=== PATIENT | male | born 1935 | race Caucasian/White ===

== ENCOUNTER 2020-06-29 09:50 | Inpatient (IN) | payer MEDICARE, SELFPAY ==
[2020-06-29] VITALS (9 sets, daily range): BP systolic 102–121; BP diastolic 46–65; PULSE 51–65; RESP 16–21; TEMP 36.2–36.7; O2SAT 95–100; BMI 23.8; BMI 23.9
--- NOTE | ~2020-06-29 | CT_ITS ---
EXAMINATION: CT abdomen pelvis wo con DATE: 06/29/2020 11:21 INDICATION: Hematuria. Flank pain. TECHNIQUE: Computed tomography (CT) of the abdomen and pelvis was performed without intravenous contr ast. Automated exposure control and iterative reconstruction technique were employed. The dose-length product was 351.81 mGy-cm. COMPARISON: None FINDINGS: Regions of tree-in-bud opacity with tiny centrilobular nodules at the dependent aspect of the bilater al lower lobes and in the lingula where there are couple larger 5 mm and 7 mm nodules. Calcified left lower lobe nodule along with multiple hepatic and splenic calcific calcification is consistent with old granulomatous disease. Heart size is normal. Atherosclerotic coronary artery calcification with c hange of prior median sternotomy, coronary artery bypass grafting and stenting. Three lead pacemaker/ AICD seen with the tips at the right atrial appendage, apex of the right ventricle and in a coronary vein along the lateral wall of the left ventricle having traversed the coronary sinus. No pericardial or pleural effusion. Small sliding-type hiatal hernia. Multiple hepatic cysts, the largest measuring 7 mm in the right hep atic lobe. Gallbladder, pancreas and bilateral adrenal glands are normal. 1.3 cm soft tissue density nodule between the upper pole of the left kidney and the caudal tip of the spleen, unclear whether th is represents a renal lesion either proteinaceous/hemorrhagic cyst or solid neoplasm or a small splen ule. Favor the latter. Bilateral kidneys and ureters are otherwise unremarkable with no urolithiasis or hydronephrosis. Swirled appearance of intermediate attenuation likely clot within the bladder whic h is of indeterminate etiology. No definitive bladder lesions identified however evaluation is limite d by the intraluminal clot. Prostatomegaly. There is mild colonic diverticulosis with a sigmoid predo minance. There is no adjacent inflammatory change to suggest diverticulitis. The appendix is not vis ualized. No pericecal inflammatory change to suggest acute appendicitis. Small bowel is unremarkable with no obstruction. Small fat-containing left inguinal hernia. No free intraperitoneal gas or fluid. No pathologically enlarged abdominal or pelvic lymphadenopathy. There is calcified atherosclerosis o f the aorta and many of the other arteries. Moderate lumbar spondylosis with 1-2 mm retrolisthesis L1 on L2 and 3 mm anterolisthesis L4 on L5. IMPRESSION: 1. Intermediate attenuation filling defect within the bladder with appearance most suspicious for padmini t which is of indeterminate etiology with no evident urolithiasis. Correlate with urinalysis. 2. 1.3 cm lesion along side but not definitively arising from the upper pole of the right kidney or t he adjacent spleen and would favor splenule over an exophytic renal lesion with differential for the latter including proteinaceous/hemorrhagic cyst or solid neoplasm. Consider further evaluation with p re and postcontrast MRI. 3. Mild tree-in-bud opacities in the bilateral lower lobes and lingula consistent with bronchiolitis/ pneumonia either acute or chronic. 4. 5 mm and 7 mm nodule at the lingula. Recommend follow-up low-dose noncontrast chest CT at 3-6 nahomi hs. 5. Small sliding-type hiatal hernia. 6. Prostatomegaly. 7. Small fat-containing left inguinal hernia. Reviewed, dictated and finalized at location A. GENCY DEPARTMENT DIRECTOR IMPRESSION: 1. Intermediate attenuation filling defect within the bladder with appearance m ost suspicious for clot which is of indeterminate etiology with no evident urol ithiasis. Correlate with urinalysis. 2. 1.3 cm lesion along side but not definitively arising from the upper pole of the right kidney or the adjacent spleen and would favor splenule ove
--- NOTE | ~2020-06-29 | XR_ITS ---
MODIFIED ESOPHAGRAM HISTORY: Dysphagia. TECHNIQUE: Modified barium esophagram was performed on 06/30/2020. I administered fluoroscopy and per formed the exam with speech pathologist. Patient was seated for lateral fluoroscopic imaging for ing estion of thin liquids, pudding, solids and quantified amounts, followed by thin liquids in uncontrol led amounts. This was recorded on tape. A single fluoroscopic spot image was also recorded. The DAP f or this procedure was 3.0 Gycm2. The amount of fluoroscopy time used during this procedure was 4.5 mi nutes. FINDINGS: Oral stage: Adequate function. Pharyngeal stage: There is reduced laryngeal elevation and tongue base retraction vallecular residue and residue in the piriform sinuses. There is laryngeal penetration and aspiration with thin liquids. Cervical/esophageal stage: Adequate function. IMPRESSION: Pharyngeal dysphagia with laryngeal penetration and aspiration with thin liquids. Please correlate with speech pathologist findings and specific feeding recommendations. Reviewed, dictated and finalized at location A. BOTOMY INSTRUCTOR
[2020-06-29 10:20] LABS: Basophils Absolute Auto 0.1 K/mm3 (0.0-0.1); Basophils Percent Auto 0.8 % (0.2-1.2); Eosinophils Absolute Auto 0.3 K/mm3 (0-0.3); Eosinophils Percent Auto 3.9 % (0-4.4); Hematocrit 40.1 % (42.0-52.0); Hemoglobin 14.2 g/dL (14.0-18.0); Immature Granulocyte Absolute 0.05 K/mm3 (0.00-0.031); Immature Granulocyte Percent A 0.6 % (0-0.5); Lymphocytes Absolute Auto 1.39 K/mm3 (0.9-3.2); Mean Corpuscular HGB Conc 35.4 g/dl (32-36); Mean Corpuscular Volume 93.3 fl (80-100); Mean Platelet Volume 9.5 fl (7.4-10.4); Monocytes Percent Auto 12.7 % (2.6-8.5); Platelet Count Result 164 k/mm3 (150-375); Red Cell Distribution Width 12.2 % (11.5-14.5); White Blood Count 7.7 K/mm3 (4.5-10.0)
[2020-06-29 10:29] LABS: Anion Gap 9 mmol/L (8-16); Blood Urea Nitrogen 55 mg/dL (9-20); Calcium 9.1 mg/dL (8.4-10.2); Carbon Dioxide 39 mmol/L (22-30); Chloride 86 mmol/L (98-107); Estimated CRCL calculation 31 ml/min; Estimated Glomerular Filt Rate 41; Glucose 203 mg/dL (75-110); Potassium 3.2 mmol/L (3.4-5.0); Sodium 134 mmol/L (137-145)
--- NOTE | 2020-06-29 10:29 | ED.MALEGU ---
HPI - Male Genitourinary General Chief complaint: Urogenital-Male <Phuong Wild PA-C - Last Filed: 06/29/20 13:39> Stated complaint: hematuria <Phuong Wild PA-C - Last Filed: 06/29/20 13:39> Time Seen by Provider: 06/29/20 10:12 <Phuong Wild PA-C - Last Filed: 06/29/20 13:39> Source: patient <Phuong Wild PA-C - Last Filed: 06/29/20 13:39> Mode of arrival: wheelchair <Phuong Wild PA-C - Last Filed: 06/29/20 13:39> Limitations: no limitations <Phuong Wild PA-C - Last Filed: 06/29/20 13:39> History of Present Illness HPI Narrative: This is a 85 year old male that presents to the ER for hematuria x 4 days. History given by patient and his . Reports he takes a baby aspirin daily, which he stopped yesterday. Reports he has had bright red blood in the urine. Also reports intermittently they see blood clots. Reports dysuria. Does report some mild low back pain. Denies fever, abdominal pain, nausea, vomiting. <Phuong Wild PA-C - Last Filed: 06/29/20 13:39> Related Data Home medications: Home Medications Medication Instructions Recorded Confirmed amitriptyline 25 mg PO HS 06/29/20 ascorbic acid (vitamin C) 500 mg PO DAILY 06/29/20 aspirin [Aspir-81] 81 mg PO DAILY 06/29/20 atorvastatin 10 mg PO DAILY 06/29/20 bimatoprost [Lumigan] 1 drp OPHTHALMIC (EYE) QPM 06/29/20 brimonidine [Alphagan P] 1 drp OPHTHALMIC (EYE) Q8H 06/29/20 buspirone 10 mg PO TID 06/29/20 cholecalciferol (vitamin D3) 125 mcg PO DAILY 06/29/20 [Vitamin D3] cyclosporine [Restasis] 1 drp OPHTHALMIC (EYE) Q12H 06/29/20 docusate sodium [Colace] 100 mg PO PRN PRN 06/29/20 fexofenadine [Vandana] 180 mg PO DAILY 06/29/20 furosemide 40 mg PO BID 06/29/20 iron-vitamin B complex with C tablet PO 06/29/20 isosorbide mononitrate 60 mg PO DAILY 06/29/20 magnesium oxide 400 mg PO DAILY 06/29/20 metolazone 2.5 mg PO PRN PRN 06/29/20 potassium chloride [Klor-Con] 20 meq PO DAILY 06/29/20 sacubitril-valsartan [Entresto] 1 tablet PO DAILY 06/29/20 sotalol 80 mg PO BID 06/29/20 vitamin E mixed [Natural Vitamin E] unit PO 06/29/20 <Phuong Wild PA-C - Last Filed: 06/29/20 13:39> Allergies/Adverse reactions: Allergies Allergy/AdvReac Type Severity Reaction Status Date / Time adhesive tape Allergy Rash Verified 06/29/20 09:59 amlodipine Allergy Chest Pain Verified 06/29/20 09:59 atenolol [From Tenormin] Allergy Chest Pain Verified 06/29/20 09:59 milnacipran [From Savella] Allergy Itching Verified 06/29/20 09:59 <Phuong Wild PA-C - Last Filed: 06/29/20 13:39> Review of Systems Review of Systems: Narrative: CONSTITUTIONAL: Denies fever GASTROINTESTINAL: Denies abdominal pain, nausea, vomiting GENITOURINARY: Reports dysuria and hematuria. MUSCULOSKELETAL: Denies back pain <Phuong Wild PA-C - Last Filed: 06/29/20 13:39> All systems reviewed & are unremarkable except as noted in HPI and below <Phuong Wild PA-C - Last Filed: 06/29/20 13:39> [facility] Past Medical History Medical History: Medical History (Updated 06/29/20 @ 13:34 by Phuong Wild PA-C) History of anxiety History of atrial fibrillation History of congestive heart failure History of hyperlipidemia <Phuong Wild PA-C - Last Filed: 06/29/20 13:39> Social History Social History: Social History Gender identity (if verbalized by the patient): Male <Phuong Wild PA-C - Last Filed: 06/29/20 13:39> Exam Narrative: Exam Narrative: GENERAL: Elderly, well-nourished, and in no acute distress. HEAD: Normocephalic, atraumatic. EYES: EOMI. CHEST: Clear to auscultation. No respiratory distress. No wheezes rales or rhonchi HEART: Regular rate and rhythm. No murmur heard. Normal peripheral pulses. ABDOMEN: Soft, nontender, nondistended, normal active bowel sounds. No CVA tenderness EXTREMITIES: Normal range of motion. No edema. SKIN: Warm, dry, no rash. CARINA
[2020-06-29 10:40] LABS: Add Urine Microscopic? YES; Appearance Urine Cloudy (Clear); Bilirubin Urine Negative (Negative); Blood Urine 2+ (Negative); Color Urine Yellow (Yellow); Glucose Urine UA 1+ mg/dL (Negative); Ketones Urine 1+ mg/dL (Negative); Leukocyte Esterase Ur Negative LEU/UL (Negative); Nitrate Urine Positive (Negative); Protein Urine 2+ mg/dL (Negative); Specific Grav Ur 1.019 (1.001-1.035); Urobilinogen Urine Negative mg/dL (<2.0)
[2020-06-29 12:41] LABS: Hemoglobin A1C 5.3 % (<5.7)
--- NOTE | 2020-06-29 12:48 | PC.NURSE ---
ED PA in room discussing plan for possible surgery vs continuous bladder irrigation with family at this time.
[2020-06-29] MEDS: POTASSIUM CHLORIDE 20 MEQ PACKET (FOR LIQUID) 40 MEQ PO (13:35)
--- NOTE | 2020-06-29 16:00 | PM.IMHP ---
H&P: HPI History of Present Illness Date/Time: 06/29/20 16:00 Chief complaint: Hematuria. Narrative: Mateo Stevens is an 89-year-old male with multiple medical problems including ischemic cardiomyopathy status post PM/ICD insertion with a reported ejection fraction of 20%, coronary artery disease with history of bypass x3, paroxysmal atrial fibrillation, hypertension, chronic respiratory failure on 2 L nasal cannula, and benign prostatic hyperplasia presented to the emergency department earlier today from home for evaluation of hematuria. Wednesday evening he passed to quarter-sized clots while urinating and intermittently over the next day he noticed blood in his urine. For the last 36 hours or so he notes gross hematuria and in fact he was evaluated by a nurse practitioner associated with [facility] at which time he was instructed to hold his aspirin and he was started on Bactrim. Due to ongoing hematuria however he came in today for evaluation. He has had mild dysuria and low back discomfort but otherwise has no complaints. He gets up to urinate 1 time per night. He specifically denies fever, chills, sweats, and abdominal pain. No nausea or vomiting. Review of Systems Review of Systems: Narrative: Twelve systems were reviewed with pertinent positives and negatives as per HPI. He wears corrective lenses. He is slightly hard of hearing. No recent cold or flu symptoms. No exposure to those positive for COVID-19. He denies chest pain and shortness of breath. No orthopnea, PND, or lower extremity edema. He does mention that he had to take metolazone earlier this week due to a 3 lb weight gain, as that drug is prescribed, and his weight is now back within normal range. He has occasional dysphagia, especially with his potassium pill. He does not recall any recent instances of coughing or choking while eating or drinking. Except as documented, all other systems were reviewed and are negative. [facility] Past Medical History Medical History (Updated 06/29/20 @ 22:10 by Christine Pearl PA-C) Anxiety Atrial fibrillation Status post cardioversion in January 2018. No longer on anticoagulation due to history of bleeding. Chronic kidney disease Chronic respiratory failure with hypoxia, on home oxygen therapy Coronary artery disease Status post CABG on 3 separate occasions. Glaucoma Hyperlipidemia Hypertension Ischemic cardiomyopathy Status post ICD insertion. EF reportedly 20%. Patient of Dr. Stoner at [facility]. Surgical History Surgical History (Updated 06/29/20 @ 22:02 by Christine Pearl PA-C) History of appendectomy History of basal cell carcinoma excision History of coronary artery bypass graft X3 (1980, 1992, and 2008) History of prostate surgery (~10/2018) Prostate laser surgery. Family History Family History (Updated 06/29/20 @ 22:03 by Christine Pearl PA-C) Mother Leukemia Father Acute myocardial infarction Father from an acute MA at age 53. Sibling Acute myocardial infarction Multiple siblings with early-onset coronary artery disease and MIs in their 50s. Social History Social History (Updated 06/29/20 @ 22:04 by Christine Pearl PA-C) Social History: Lives in [place] with his . They have 2 children. He is retired from [email or web address]. He smoked up to a pack of cigarettes a day and quit 1980. Seldom alcohol use. No illicit substance use. He designates his Gilma as his surrogate decision maker and he wishes to be a full code. Smoking status: Never smoker Alcohol intake: former Substance use: never Gender identity (if verbalized by the patient): Male Spiritual care concerns: No Meds Home Medications and Allergies Home Medications Medication Instructions Recorded Confirmed Type amitriptyline 25 mg PO HS 06/29/20 06/29/20 History ascorbic acid (vitamin C) 500 mg PO DAILY 06/29/20 06/29/20 History aspirin [As
--- NOTE | 2020-06-29 17:51 | ADMGEN ---
This patient, Mateo Stevens, was admitted to Medical Room 340-01. Patient/family oriented to hospital policies and general routines including ID bracelet, bed and alarms, visiting hours, pain management, procedures, bathroom and other care routines, personal items, smoking policy, room service/diet, and visiting hours. Information on how to activate the Rapid Response Team has been discussed. Patient/Family are encouraged to report perceived risks to care and to ask questions if they do not understand what they are told or what they should do.
[2020-06-29 22:10] LABS: Hematocrit 39.2 % (42.0-52.0); Hemoglobin 13.9 g/dL (14.0-18.0)
[2020-06-29 22:21] LABS: Anion Gap 7 mmol/L (8-16); Blood Urea Nitrogen 54 mg/dL (9-20); Calcium 9.3 mg/dL (8.4-10.2); Carbon Dioxide 34 mmol/L (22-30); Chloride 94 mmol/L (98-107); Estimated CRCL calculation 31 ml/min; Estimated Glomerular Filt Rate 41; Glucose 125 mg/dL (75-110); Potassium 3.9 mmol/L (3.4-5.0); Sodium 135 mmol/L (137-145)
[2020-06-29] MEDS: BRIMONIDINE TARTRATE 0.1% 5 ML OPHTH DROPS 1 DROP EACH EYE (22:33)
[2020-06-29] MEDS: AMITRIPTYLINE HCL 25 MG TABLET PO (22:33)
[2020-06-29] MEDS: LATANOPROST 0.005% OP SOLN 2.5 ML BTL 1 DROP EACH EYE (22:33)
[2020-06-29] MEDS: busPIRone HCL 10 MG TABLET PO (22:33)
[2020-06-29] MEDS: SOTALOL HCL 80 MG TABLET PO (22:33)
[2020-06-29] MEDS: cycloSPORINE 0.4 ML OPHTH SOLUTION 1 DROP EACH EYE (22:34)
[2020-06-30] VITALS (15 sets, daily range): BP systolic 107–147; BP diastolic 51–63; PULSE 50–61; RESP 9–20; TEMP 35.7–37.1; O2SAT 95–100
[2020-06-30 06:29] LABS: Basophils Absolute Auto 0.1 K/mm3 (0.0-0.1); Basophils Percent Auto 0.8 % (0.2-1.2); Eosinophils Absolute Auto 0.4 K/mm3 (0-0.3); Eosinophils Percent Auto 5.2 % (0-4.4); Hematocrit 41.3 % (42.0-52.0); Hemoglobin 14.3 g/dL (14.0-18.0); Immature Granulocyte Absolute 0.07 K/mm3 (0.00-0.031); Immature Granulocyte Percent A 0.8 % (0-0.5); Lymphocytes Absolute Auto 1.56 K/mm3 (0.9-3.2); Lymphocytes Percent Auto 18.3 % (18.3-44.2); Mean Corpuscular HGB Conc 34.6 g/dl (32-36); Mean Corpuscular Hemoglobin 32.4 pg (26-34); Mean Corpuscular Volume 93.7 fl (80-100); Mean Platelet Volume 9.6 fl (7.4-10.4); Monocytes Absolute Auto 1.4 K/mm3 (0.1-0.6); Monocytes Percent Auto 16.8 % (2.6-8.5); Neutrophils Percent Auto 58.1 % (45.5-73.1); Platelet Count Result 147 k/mm3 (150-375); Red Blood Count 4.41 M/mm3 (4.6-6.20); Red Cell Distribution Width 12.1 % (11.5-14.5); White Blood Count 8.5 K/mm3 (4.5-10.0)
[2020-06-30] MEDS: BRIMONIDINE TARTRATE 0.1% 5 ML OPHTH DROPS 1 DROP EACH EYE ×3 (06:35→22:01)
--- NOTE | 2020-06-30 06:55 | WPDANESEPP ---
Anes - Eval Pre Procedure Procedure: cysto clot evacuation Date/Time: 06/30/20 06:55 Pre Op Diagnosis: Hematuria. Patient Data Age: 85 Gender: M Height: 1.73 m Weight: 71.5 kg Last Vital Signs Temp 36.6 C 06/29/20 22:00 Pulse 63 06/29/20 22:33 Resp 21 H 06/29/20 22:00 BP 102/46 L 06/29/20 22:00 Pulse Ox 100 06/29/20 22:00 Allergies Allergy/AdvReac Type Severity Reaction Status Date / Time adhesive tape Allergy Rash Verified 06/29/20 18:15 amlodipine Allergy Chest Pain Verified 06/29/20 18:15 atenolol [From Tenormin] Allergy Chest Pain Verified 06/29/20 18:15 milnacipran [From Savella] Allergy Itching Verified 06/29/20 18:15 Home Medications Medication Instructions Recorded Confirmed Type amitriptyline 25 mg PO HS 06/29/20 06/29/20 History ascorbic acid (vitamin C) 500 mg PO DAILY 06/29/20 06/29/20 History aspirin [Aspir-81] 81 mg PO DAILY 06/29/20 06/29/20 History atorvastatin 10 mg PO DAILY 06/29/20 06/29/20 History bimatoprost [Lumigan] 1 drp OPHTHALMIC (EYE) QPM 06/29/20 06/29/20 History brimonidine [Alphagan P] 1 drp OPHTHALMIC (EYE) Q8H 06/29/20 06/29/20 History buspirone 10 mg PO TID 06/29/20 06/29/20 History cholecalciferol (vitamin D3) 125 mcg PO DAILY 06/29/20 06/29/20 History [Vitamin D3] cyclosporine [Restasis] 1 drp OPHTHALMIC (EYE) Q12H 06/29/20 06/29/20 History docusate sodium [Colace] 100 mg PO PRN PRN 06/29/20 06/29/20 History fexofenadine [Vandana] 180 mg PO DAILY 06/29/20 06/29/20 History furosemide 40 mg PO BID 06/29/20 06/29/20 History iron-vitamin B complex with C 27 - 300 tablet PO DAILY 06/29/20 06/29/20 History isosorbide mononitrate 60 mg PO DAILY 06/29/20 06/29/20 History magnesium oxide 400 mg PO DAILY 06/29/20 06/29/20 History metolazone 2.5 mg PO PRN PRN 06/29/20 06/29/20 History potassium chloride [Klor-Con] 20 meq PO DAILY 06/29/20 06/29/20 History sacubitril-valsartan [Entresto] 1 tablet PO DAILY 06/29/20 06/29/20 History sotalol 80 mg PO BID 06/29/20 06/29/20 History vitamin E mixed [Natural Vitamin E] 400 unit PO DAILY 06/29/20 06/29/20 History Laboratory Tests 06/29/20 06/29/20 06/29/20 10:08 10:09 10:09 WBC 7.7 K/mm3 K/mm3 (4.5-10.0) RBC 4.30 M/mm3 L M/mm3 (4.6-6.20) Hgb 14.2 g/dL g/dL (14.0-18.0) Hct 40.1 % L % (42.0-52.0) MCV 93.3 fl fl (80-100) MCH 33.0 pg pg (26-34) MCHC 35.4 g/dl g/dl (32-36) RDW 12.2 % % (11.5-14.5) Plt Count 164 k/mm3 k/mm3 (150-375) MPV 9.5 fl fl (7.4-10.4) Immature Gran % (Auto) 0.6 % H % (0-0.5) Neut % (Auto) 64.0 % % (45.5-73.1) Lymph % (Auto) 18.0 % L % (18.3-44.2) Chester % (Auto) 12.7 % H % (2.6-8.5) Eos % (Auto) 3.9 % % (0-4.4) Baso % (Auto) 0.8 % % (0.2-1.2) Lymph # (Auto) 1.39 K/mm3 K/mm3 (0.9-3.2) Chester # (Auto) 1.0 K/mm3 H K/mm3 (0.1-0.6) Eos # (Auto) 0.3 K/mm3 K/mm3 (0-0.3) Baso # (Auto) 0.1 K/mm3 K/mm3 (0.0-0.1) Abs Immat Gran (auto) 0.05 K/mm3 H K/mm3 (0.00-0.031) Absolute Neuts (auto) 5.0 K/mm3 K/mm3 (1.3-6.7) Absolute Nucleated RBC 0.0 K/mm3 K/mm3 (0.0-0.012) Nucleated RBC % 0.0 % % (0.0-0.2) Sodium 134 mmol/L L mmol/L (137-145) Potassium 3.2 mmol/L L mmol/L (3.4-5.0) Chloride 86 mmol/L L mmol/L (98-107) Carbon Dioxide 39 mmol/L H mmol/L (22-30) Anion Gap 9 mmol/L mmol/L (8-16) BUN 55 mg/dL H mg/dL (9-20) Creatinine 1.60 mg/dL H mg/dL (0.7-1.3) Estim Creat Clear Calc 31 ml/min ml/min Estimated GFR 41 L (59 - ) Glucose 203 mg/dL H mg/dL (75-110) Hemoglobin A1c 5.3 % % (<5.7) Calcium 9.1 mg/dL mg/dL (8.4-10.2) Total Bilirubin AST ALT Alkaline Phosphatase
[2020-06-30 07:05] LABS: Alanine Aminotransferase 45 U/L (4-50); Albumin Level 4.1 g/dL (3.5-5.1); Alkaline Phosphatase 71 U/L (38-126); Anion Gap 9 mmol/L (8-16); Aspartate Amino Transferase 40 U/L (17-59); Bilirubin,Total 0.9 mg/dL (0.2-1.3); Blood Urea Nitrogen 45 mg/dL (9-20); Calcium 9.3 mg/dL (8.4-10.2); Carbon Dioxide 35 mmol/L (22-30); Chloride 93 mmol/L (98-107); Estimated CRCL calculation 31 ml/min; Estimated Glomerular Filt Rate 41; Glucose 113 mg/dL (75-110); Potassium 3.4 mmol/L (3.4-5.0); Sodium 137 mmol/L (137-145)
--- NOTE | 2020-06-30 07:06 | WPDURCON ---
Assessment and Plan Assessment and plan (1) Urinary tract infection: Code(s): N39.0 - Urinary tract infection, site not specified Status: Acute Assessment and Plan: Rocephin IV, dose prior to procedure. (2) Hematuria: Qualifiers: Hematuria type: gross Qualified Code(s): R31.0 - Gross hematuria Code(s): R31.9 - Hematuria, unspecified Status: Acute Assessment and Plan: I have personally reviewed the CT scan images from yesterday. There appears to be significant volume of hyperdense material in the bladder. Therefore, I am concerned for clot retention and persistent bleeding. We will plan for cystoscopy, clot evacuation and fulguration of bleeding vessels. The patient is A&Ox3 and consents to surgery. We have discussed the risks including injury to the urethra, prostate, bladder, ureter, infection (already present), persistent hematuria, need for further surgery, need for prolonged catheterization and anesthetic complication. He is at high risk for anesthetic event due to his cardiac history and is aware of these risks and would like to proceed. Urology Consult Note HPI Date Seen: 06/30/20 Requesting Physician: Maximiliano Spaulding MD Primary Care Provider: Aubrey MillerMD Consult Narrative Narrative: Mateo Stevens is a 85 year old male who presents to [facility] with gross hematuria. He was seen in our urology clinic on Wednesday for gross hematuria and treated with antibiotics given nitrite positive UA, a culture was sent but is pending. He continued to produce clot and thus returned to the ER for evaluation. There a CT without contrast demonstrated significant hyperdense material within the bladder suggestive of clot. His Hgb has been stable and his SCr is at his reported baseline. He has undergone laser TURP in the last couple of years which helped his voiding symptoms. Review of Systems Constitutional: Constitutional: Denies anorexia, Denies body ache(s), Denies chills, Reports fatigue, Denies fever(s) and Denies frequent falls Eyes: Eyes: Denies no additional eye complaints, Denies blind spots and Denies blurry vision ENT: Reports Normal hearing present, Denies halitosis, Denies change in voice and Denies vertigo Cardiovascular: Cardiovascular: Denies chest pain, Denies chest pain at rest and Denies edema Respiratory: Respiratory: Denies chest congestion, Denies hemoptysis and Reports dyspnea Gastrointestinal: Gastrointestinal: Reports no additional gastrointestinal complaints Genitourinary: Genitourinary: Reports hematuria, Denies oliguria, Denies genital lesions and Denies genital pain Musculoskeletal: Musculoskeletal: Reports no additional musculoskeletal complaints Integumentary/Breasts: Skin/Breast: Reports system reviewed and no additional complaints, except as docu Neurologic: Reports system reviewed and no additional complaints, except as documented Psychiatric: Psychiatric: Reports no additional psychiatric complaints Endocrine: Endocrine: Reports no additional endocrine complaints [facility] Past Medical History Medical History (Updated 06/29/20 @ 22:10 by Christine Pearl PA-C) Anxiety Atrial fibrillation Status post cardioversion in January 2018. No longer on anticoagulation due to history of bleeding. Chronic kidney disease Chronic respiratory failure with hypoxia, on home oxygen therapy Coronary artery disease Status post CABG on 3 separate occasions. Glaucoma Hyperlipidemia Hypertension Ischemic cardiomyopathy Status post ICD insertion. EF reportedly 20%. Patient of Dr. Stoner at [facility]. Surgical History Surgical History (Updated 06/29/20 @ 22:02 by Christine Pearl PA-C) History of appendectomy History of basal cell carcinoma excision History of coronary artery bypass graft X3 (1980, 1992, and 2008) History of prostate surgery (~10/2018) Prostate laser surgery. Family History Family History (Updated 06/29/20 @ 2
--- NOTE | 2020-06-30 07:19 | WPDHPUPDATE1 ---
History and Physical Update Update Date/Time: 06/30/20 07:19 History and Physical has been reviewed, including an updated exam of the patient. There are NO changes in the patient's condition. Risks, benefits, and alternatives have been discussed and questions answered. Patient agrees to proceed with procedure.
--- NOTE | 2020-06-30 07:32 | WPDANESEFPP ---
Anes - Eval Final PreProcedure Day of Procedure 06/30/20 07:32 Patient weight: normal Heart: regular rate and rhythm Lungs: clear to auscultation and normal air movement Airway: Mallampati scale class II Neurological: alert and oriented Last oral intake: >/= 8 hours ASA classification: IV Emergent: yes Anesthetic plan: proceed Anesthesia type and monitoring: general GIVS and LMA Informed Consent: The patient's anesthetic plan and its attendant risks and benefits were discussed with the patient/family/POA. Questions were solicited and answers provided to the satisfaction of the patient/family/POA.
--- NOTE | 2020-06-30 07:40 | PC.NURSE ---
Patient to OR via bed.
[2020-06-30] MEDS: LACTATED RINGERS 1,000 ML 30 ML IV CONT (07:45)
--- NOTE | 2020-06-30 08:24 | PM.PROC ---
Procedure Note - Detailed Date of procedure: 06/30/20 Pre-op diagnosis: Hematuria. Post-op diagnosis: same Procedure performed: Cystoscopy and clot evacuation Fulguration of bleeding vessels. Description of procedure: The patient offered informed written consent after a discussion of benefits and risks. He was taken to the operating room and placed on the table in the supine position. Preoperative antibiotics were started and he was induced with MAC. He was transferred to the dorsal lithotomy position and prepped and draped in the standard sterile fashion. A call to order was made to confirm proper identity and procedure. The 22F cystoscope was placed atraumatically and pancystoscopy revealed a moderate clot burden along with bleeding vessels at the bladder neck. The cystoscope was removed and a 24F resectoscope was placed atraumatically. The clot was evacuated out and a roller ball used to achieve hemostasis at the bladder neck working to the verumontanum. Several prostatic calcifications were noted and extruded. Once hemostasis was achieved the resectoscope was driven back into the bladder and the ureteral orifices were visualized confirming no injury. The resectoscope was removed and a 22F 3-way CBI catheter placed. The patient was awoken from anesthesia having suffered no apparent complications. I have called his per his wishes and updated her. Anesthesia: MAC Surgeon: Edward Davidson MD Estimated blood loss (mL): 5 Drains: Yes (22F 3 Way CBI catheter) Packing: No Pathology: none sent Complications: No immediate complications Condition: stable Disposition: PACU Findings: No papillary masses or lesions. Clot evacuated. Hemostasis achieved. Ureteral orifices uninjured. No fulguration distal to verumontanum required.
--- NOTE | 2020-06-30 09:55 | PC.NURSE ---
Patient returned from PACU via bed.
--- NOTE | 2020-06-30 10:13 | PM.IMPN ---
Progress Note: A&P Assessment and Plan (1) Hematuria: Qualifiers: Hematuria type: gross Qualified Code(s): R31.0 - Gross hematuria Code(s): R31.9 - Hematuria, unspecified Status: Acute Assessment and Plan: Patient underwent cystoscopy 06/30/20 and did well -he had a clot evacuation with fulguration of bleeding vessels -currently on CBI and will be managed by urology -there were no papillary masses or lesions -continue ceftriaxone and await urine culture -if the hematuria improves, hopefully home in 1-2 days (2) Chronic kidney disease: Code(s): N18.9 - Chronic kidney disease, unspecified Status: Acute Assessment and Plan: Appears to be a baseline (3) Electrolyte abnormality: Code(s): E87.8 - Other disorders of electrolyte and fluid balance, not elsewhere classified Status: Acute Assessment and Plan: Sodium and potassium are now within normal limits (4) Hyperglycemia: Code(s): R73.9 - Hyperglycemia, unspecified Status: Acute Assessment and Plan: Noted on routine labs -A1c within normal limits (5) Abnormal finding on imaging: Code(s): R93.89 - Abnormal findings on diagnostic imaging of other specified body structures Status: Acute Assessment and Plan: -There is a 1.3 cm lesion of the upper pole of the right kidney that favors splenule. Low risk for neoplasm but it is in the differential. Consider MRI outpatient if desired -there is also a 5 mm and 7 mm nodule at the lingula and we recommend a CT in 6 months -follow-up with PCP (6) Hypertension: Code(s): I10 - Essential (primary) hypertension Status: Inactive Assessment and Plan: Last blood pressure 130/61 -continue Lasix, Imdur, Entresto, and sotalol (7) Atrial fibrillation: Code(s): I48.91 - Unspecified atrial fibrillation Status: Inactive Assessment and Plan: Without RVR -continue sotalol (8) Ischemic cardiomyopathy: Code(s): I25.5 - Ischemic cardiomyopathy Status: Inactive Assessment and Plan: Chronic -appears euvolemic -continue Lasix, Imdur, and Entresto -patient is on 2 L of oxygen chronically for this (9) Urinary tract infection: Code(s): N39.0 - Urinary tract infection, site not specified Status: Acute Assessment and Plan: Continue ceftriaxone and await urine cultures (10) Dysphagia: Code(s): R13.10 - Dysphagia, unspecified Status: Acute Assessment and Plan: Noted on history with CT findings of possible pneumonia -patient gives a vague recent history of cough and sputum production but states it could be phlegm from his esophagus making him cough -will add Flagyl -await modified results Time Spent With Patient Time with patient: 25 - 35 minutes Subjective Date/time seen: 06/30/20 10:13 Interval history: Pt is an 85-year-old male here for hematuria. Patient was seen today after his cystoscopy and is doing well. He has a little bit of sensation in his bladder significant pain. He states that he coughs every once in a while and does admit to choking when he eats quite a bit. He utilizes oxygen at home for his CHF and is currently on 2 L. he does not usually have a [place] catheter. He denies chest pain, shortness of breath, fevers, chills, abdominal pain, leg swelling, nausea or vomiting. Review of Systems Review of Systems: All systems reviewed & are unremarkable except as noted in HPI and below Exam Narrative: Exam Narrative: General: Well developed well nourished patient in NAD HEENT: normocephalic Neck: supple Neuro: Alert and oriented x4 CV:RRR Resp: Crackles at the bases Abd: Soft, non distended. No pain to palpation. Positive bowel sounds Extremities: No swelling, erythema, or pain to palpation. Objective Data Vital Signs Vital Signs: Vital Signs - 24 hr 06/29
[2020-06-30] MEDS: ATORVASTATIN 10 MG TABLET PO (10:17)
[2020-06-30] MEDS: cycloSPORINE 0.4 ML OPHTH SOLUTION 1 DROP EACH EYE ×2 (10:18→20:14)
[2020-06-30] MEDS: LORATADINE 10 MG TABLET PO (10:18)
[2020-06-30] MEDS: FUROSEMIDE 40 MG TABLET PO ×2 (10:18→17:07)
[2020-06-30] MEDS: ISOSORBIDE MONONITRATE 60 MG TAB.ER.24H PO (10:18)
[2020-06-30] MEDS: busPIRone HCL 10 MG TABLET PO ×3 (10:18→17:07)
[2020-06-30] MEDS: SOTALOL HCL 80 MG TABLET PO ×2 (10:19→20:13)
[2020-06-30] MEDS: MAGNESIUM OXIDE 400 MG TABLET PO (10:19)
[2020-06-30] MEDS: SACUBITRIL/VALSARTAN 24-26 MG TABLET 1 TAB PO (10:19)
[2020-06-30] MEDS: POTASSIUM CHLORIDE 20 MEQ TABLET PO (10:41)
--- NOTE | 2020-06-30 11:20 | PC.NURSE ---
Patient to radiology for barium swallow study via chair.
--- NOTE | 2020-06-30 11:51 | PC.NURSE ---
Patient returned from radiology via chair. Patient oriented to room.
--- NOTE | 2020-06-30 11:54 | PCSTNOTE ---
MBS completed. Please see ST evaluation for details and recommendations.
[2020-06-30] MEDS: metroNIDAZOLE 250 MG TABLET 500 MG PO ×3 (12:36→23:37)
[2020-06-30] MEDS: POTASSIUM CHLORIDE 20 MEQ PACKET (FOR LIQUID) PO (17:07)
[2020-06-30] MEDS: LATANOPROST 0.005% OP SOLN 2.5 ML BTL 1 DROP EACH EYE (20:13)
[2020-06-30] MEDS: AMITRIPTYLINE HCL 25 MG TABLET PO (20:13)
[2020-07-01] VITALS (8 sets, daily range): BP systolic 86–126; BP diastolic 42–57; PULSE 60–72; RESP 12–14; TEMP 35.8–36.7; O2SAT 95–100
[2020-07-01] MEDS: BRIMONIDINE TARTRATE 0.1% 5 ML OPHTH DROPS 1 DROP EACH EYE ×3 (05:14→21:20)
[2020-07-01] MEDS: metroNIDAZOLE 250 MG TABLET 500 MG PO ×4 (05:14→23:17)
[2020-07-01 06:17] LABS: Hematocrit 37.6 % (42.0-52.0); Hemoglobin 13.2 g/dL (14.0-18.0); Immature Platelet Fraction Pct 1.6 % (0.9-11.2); Mean Corpuscular HGB Conc 35.1 g/dl (32-36); Mean Corpuscular Hemoglobin 32.3 pg (26-34); Mean Corpuscular Volume 91.9 fl (80-100); Mean Platelet Volume 9.6 fl (7.4-10.4); Platelet Count Result 130 k/mm3 (150-375); Red Blood Count 4.09 M/mm3 (4.6-6.20); White Blood Count 9.7 K/mm3 (4.5-10.0)
[2020-07-01 06:30] LABS: Anion Gap 5 mmol/L (8-16); Blood Urea Nitrogen 35 mg/dL (9-20); Calcium 8.6 mg/dL (8.4-10.2); Carbon Dioxide 35 mmol/L (22-30); Chloride 95 mmol/L (98-107); Estimated CRCL calculation 35 ml/min; Estimated Glomerular Filt Rate 48; Glucose 121 mg/dL (75-110); Magnesium 2.3 mg/dL (1.6-2.3); Potassium 3.6 mmol/L (3.4-5.0); Sodium 135 mmol/L (137-145)
[2020-07-01] MEDS: SACUBITRIL/VALSARTAN 24-26 MG TABLET 1 TAB PO (09:29)
[2020-07-01] MEDS: ISOSORBIDE MONONITRATE 60 MG TAB.ER.24H PO (09:29)
[2020-07-01] MEDS: FUROSEMIDE 40 MG TABLET PO ×2 (09:30→17:35)
[2020-07-01] MEDS: MAGNESIUM OXIDE 400 MG TABLET PO (09:30)
[2020-07-01] MEDS: busPIRone HCL 10 MG TABLET PO ×3 (09:30→17:35)
[2020-07-01] MEDS: POTASSIUM CHLORIDE 20 MEQ PACKET (FOR LIQUID) PO (09:30)
[2020-07-01] MEDS: cycloSPORINE 0.4 ML OPHTH SOLUTION 1 DROP EACH EYE ×2 (09:30→21:20)
[2020-07-01] MEDS: ATORVASTATIN 10 MG TABLET PO (09:30)
[2020-07-01] MEDS: LORATADINE 10 MG TABLET PO (09:30)
[2020-07-01] MEDS: SOTALOL HCL 80 MG TABLET PO ×2 (09:31→21:18)
--- NOTE | 2020-07-01 09:51 | PM.IMPN ---
Progress Note: A&P Assessment and Plan (1) Hematuria: Qualifiers: Hematuria type: gross Qualified Code(s): R31.0 - Gross hematuria Code(s): R31.9 - Hematuria, unspecified Status: Acute Assessment and Plan: Patient underwent cystoscopy 06/30/20 and did well -he had a clot evacuation with fulguration of bleeding vessels -currently on CBI and will be managed by urology -there were no papillary masses or lesions -continue ceftriaxone at this time -Urine cx negative but pt did get Bactrim before admission which could have sterolized the urines -if the hematuria improves, hopefully home in 1-2 days -Main complaint is weakness--continue PT/OT (2) Chronic kidney disease: Code(s): N18.9 - Chronic kidney disease, unspecified Status: Acute Assessment and Plan: Appears to be a baseline (3) Electrolyte abnormality: Code(s): E87.8 - Other disorders of electrolyte and fluid balance, not elsewhere classified Status: Acute Assessment and Plan: -Sodium mildly low but looks okay -Potassium 3.6 today -Continue to monitor (4) Hyperglycemia: Code(s): R73.9 - Hyperglycemia, unspecified Status: Acute Assessment and Plan: Noted on routine labs -A1c within normal limits (5) Abnormal finding on imaging: Code(s): R93.89 - Abnormal findings on diagnostic imaging of other specified body structures Status: Acute Assessment and Plan: -There is a 1.3 cm lesion of the upper pole of the right kidney that favors splenule. Low risk for neoplasm but it is in the differential. Consider MRI outpatient if desired -there is also a 5 mm and 7 mm nodule at the lingula and we recommend a CT in 6 months -follow-up with PCP (6) Hypertension: Code(s): I10 - Essential (primary) hypertension Status: Inactive Assessment and Plan: Last blood pressure 126/56 -continue Lasix, Imdur, Entresto, and sotalol (7) Atrial fibrillation: Code(s): I48.91 - Unspecified atrial fibrillation Status: Inactive Assessment and Plan: Without RVR -continue sotalol (8) Ischemic cardiomyopathy: Code(s): I25.5 - Ischemic cardiomyopathy Status: Inactive Assessment and Plan: Chronic -appears euvolemic -continue Lasix, Imdur, and Entresto -patient is on 2 L of oxygen chronically for this (9) Urinary tract infection: Code(s): N39.0 - Urinary tract infection, site not specified Status: Acute Assessment and Plan: Continue ceftriaxone as stated above (10) Dysphagia: Code(s): R13.10 - Dysphagia, unspecified Status: Acute Assessment and Plan: Noted on history with CT findings of possible pneumonia -patient gives a vague recent history of cough and sputum production but states it could be phlegm from his esophagus making him cough -continue ceftriaxone and flagyl -ST recommends mild thick liquids and continue ST. My need this at home as well -Consider home health since pt is weak and needs ST and may need PT/OT. Acceptance with [facility] pending Subjective Date/time seen: 07/01/20 09:51 Interval history: Pt is an 85-year-old male here for hematuria. Patient was seen today and still feels weak. When he gets up he doesn't feel as strong as usual but denies dizziness or lightheadedness. He has chronic EPPS but nothing new. He denies CP, fevers, chills, nausea, vomiting, leg swelling, or abdominal pain. His last BM was 2 days ago and thinks he will have one soon. Exam Narrative: Exam Narrative: General: Well developed well nourished patient in NAD HEENT: normocephalic Neck: supple Neuro: Alert and oriented x4 CV:RRR Resp: CTA Abd: Soft, non distended. No pain to palpation. Positive bowel sounds Extremities: No swelling, erythema, or pain to palpation. : light red urine in the mckinley bag Objective Data Vital Signs Violeta
--- NOTE | 2020-07-01 15:26 | WPDUROPN2 ---
Progress Note: A&P Assessment and Plan (1) Hematuria: Qualifiers: Hematuria type: gross Qualified Code(s): R31.0 - Gross hematuria Code(s): R31.9 - Hematuria, unspecified Status: Acute Assessment and Plan: Turned CBI off, if urine remains clear, keep CBI off, will determine in the morning if a voiding trial can be done. If urine would get bloody again, restart CBI. Urine culture negative, ok to stop Ceftriaxone. Subjective Subjective Date/Time Seen: 07/01/20 15:26 POD #1 Cystoscopy, clot evacuation. Patient doing well, urine is clear on slow CBI today. Review of Systems Cardiovascular: Cardiovascular: Reports no additional cardiovascular complaints Respiratory: Respiratory: Reports no additional respiratory complaints Gastrointestinal: Gastrointestinal: Denies abdominal pain, Denies nausea and Denies vomiting Genitourinary: Genitourinary: Denies hematuria, Denies dysuria, Denies flank pain, Denies urinary frequency and Denies urinary hesitancy Exam Resp: Effort & Inspection: normal respiratory effort Cardio: Rate: regular rate GI: GI Palp: Yes Soft to palpation and No Tenderness to palpation present (GI) Urinary Catheter: Urinary Catheter: patent and draining and urine clear Extrem: General: no edema Objective Data Vital Signs Vital Signs: Vital Signs - 24 hr 06/30/20 19:57 06/30/20 20:12 06/30/20 20:13 Temperature 98.7 F Pulse Rate 59 L 61 Respiratory Rate 16 Blood Pressure 121/51 L Pulse Oximetry 100 100 07/01/20 07:41 07/01/20 08:00 07/01/20 09:31 Temperature 98.1 F Pulse Rate 68 72 Respiratory Rate 12 Blood Pressure 126/56 L Pulse Oximetry 100 95 07/01/20 14:39 Temperature 96.4 F L Pulse Rate 60 Respiratory Rate 14 Blood Pressure 86/42 L Pulse Oximetry 98 Intake/Output Intake/Output: Intake & Output 06/28/20 06/29/20 06/30/20 07/01/20 23:59 23:59 23:59 23:59 Intake Total 50 1280 480 Output Total 2550 2500 Balance 50 -312 Meds/Results Medications: Active Medications Generic Name Dose Route Start Last Admin Trade Name Freq PRN Reason Stop Dose Admin Amitriptyline HCl 25 mg 06/29/20 22:00 06/30/20 20:13 Amitriptyline Hcl 25 Mg Tablet PO 25 mg HS MADIE Administration Atorvastatin Calcium 10 mg 06/30/20 09:00 07/01/20 09:30 Atorvastatin 10 Mg Tablet PO 10 mg DAILY MADIE Administration Brimonidine Tartrate 1 drop 06/29/20 22:00 07/01/20 13:02 Brimonidine Tartrate 0.1% 5 Ml Ophth Drops EACH EYE 1 drop Q8HR MADIE Administration Buspirone HCl 10 mg 06/29/20 22:00 07/01/20 13:02 Buspirone Hcl 10 Mg Tablet PO 10 mg TID MADIE Administration Cyclosporine 1 drop 06/29/20 22:00 07/01/20 09:30 Cyclosporine 0.4 Ml Ophth Solution EACH EYE 1 drop Q12HR MADIE Administration Docusate Sodium 100 mg 06/29/20 21:49 Docusate Sodium 100 Mg Capsule PO DAILY PRN Constipation Furosemide 40 mg 06/30/20 09:00 07/01/20 09:30 Furosemide 40 Mg Tablet PO 40 mg BID MADIE Administration Ceftriaxone Sodium/Dextrose 1 gm in 50 mls @ 100 mls/hr 06/30/20 09:00 07/01/20 09:29 Rocephin 1 Gm/D5w 50 Ml IVPB 100 mls/hr Q24H MADIE Administration Isosorbide Mononitrate 60 mg 06/30/20 09:00 07/01/20 09:29 Isosorbide Mononitrate 60 Mg Tab.Er.24h PO 60 mg DAILY MADIE Administration Latanoprost 1 drop 06/29/20 22:05 06/30/20 20:13 Latanoprost 0.005% Op Soln 2.5 Ml Btl EACH EYE 1 drop HS MADIE Administration Loratadine 10 mg 06/30/20 09:00 07/01/20 09:30 Loratadine 10 Mg Tablet PO 10 mg QAM MADIE Administration Magnesium Oxide 400 mg 06/30/20 09:00 07/01/20 09:30 Magnesium Oxide 400 Mg Tablet PO 400 mg DAILY MADIE Administration Metronidazole 500 mg 06/30/20 12:00 07/01/20 13:02 Metronidazole 250 Mg Tablet PO 500 mg Q6HR MADIE Administration Non-Formulary Medication 27 - 300 tablet 06/30/20 09:00 Iron-Vitamin B
[2020-07-01] MEDS: AMITRIPTYLINE HCL 25 MG TABLET PO (21:18)
[2020-07-01] MEDS: LATANOPROST 0.005% OP SOLN 2.5 ML BTL 1 DROP EACH EYE (21:20)
[2020-07-02] MEDS: BRIMONIDINE TARTRATE 0.1% 5 ML OPHTH DROPS 1 DROP EACH EYE ×2 (05:31→13:14)
[2020-07-02] MEDS: metroNIDAZOLE 250 MG TABLET 500 MG PO ×2 (05:31→13:14)
[2020-07-02 06:13] LABS: Hematocrit 35.7 % (42.0-52.0); Hemoglobin 12.7 g/dL (14.0-18.0); Immature Platelet Fraction Pct 1.7 % (0.9-11.2); Mean Corpuscular HGB Conc 35.6 g/dl (32-36); Mean Corpuscular Volume 92.7 fl (80-100); Mean Platelet Volume 9.1 fl (7.4-10.4); Platelet Count Result 131 k/mm3 (150-375); Red Blood Count 3.85 M/mm3 (4.6-6.20); Red Cell Distribution Width 12.1 % (11.5-14.5); White Blood Count 7.5 K/mm3 (4.5-10.0)
[2020-07-02 06:26] LABS: Anion Gap 3 mmol/L (8-16); Blood Urea Nitrogen 30 mg/dL (9-20); Calcium 8.4 mg/dL (8.4-10.2); Carbon Dioxide 33 mmol/L (22-30); Chloride 97 mmol/L (98-107); Estimated CRCL calculation 40 ml/min; Estimated Glomerular Filt Rate 58; Glucose 120 mg/dL (75-110); Potassium 3.9 mmol/L (3.4-5.0); Sodium 133 mmol/L (137-145)
[2020-07-02 08:00] VITALS: O2SAT 98
[2020-07-02 10:25] VITALS: BP 119/55; PULSE 66; RESP 18; O2SAT 98
[2020-07-02] MEDS: POTASSIUM CHLORIDE 20 MEQ PACKET (FOR LIQUID) PO (10:30)
[2020-07-02] MEDS: FUROSEMIDE 40 MG TABLET PO (10:31)
[2020-07-02] MEDS: ATORVASTATIN 10 MG TABLET PO (10:31)
[2020-07-02] MEDS: cycloSPORINE 0.4 ML OPHTH SOLUTION 1 DROP EACH EYE (10:31)
[2020-07-02] MEDS: busPIRone HCL 10 MG TABLET PO ×2 (10:31→13:14)
[2020-07-02] MEDS: MAGNESIUM OXIDE 400 MG TABLET PO (10:32)
[2020-07-02] MEDS: ISOSORBIDE MONONITRATE 60 MG TAB.ER.24H PO (10:32)
[2020-07-02] MEDS: LORATADINE 10 MG TABLET PO (10:32)
[2020-07-02 10:34] VITALS: PULSE 66
[2020-07-02] MEDS: SOTALOL HCL 80 MG TABLET PO (10:34)
[2020-07-02] MEDS: SACUBITRIL/VALSARTAN 24-26 MG TABLET 1 TAB PO (10:34)
--- NOTE | 2020-07-02 10:55 | WPDUROPN2 ---
Progress Note: A&P Assessment and Plan (1) Hematuria: Qualifiers: Hematuria type: gross Qualified Code(s): R31.0 - Gross hematuria Code(s): R31.9 - Hematuria, unspecified Status: Acute Assessment and Plan: Resolved. Ok to remove mckinley, urine culture negative. Will do a voiding trial today, and a bladder scan post first void. Subjective Subjective Date/Time Seen: 07/02/20 10:55 POD #2 Cystoscopy with clot evacuation. Urine is clear >24hours off CBI. Patient doing well, no c/o pain. Review of Systems Cardiovascular: Cardiovascular: Reports no additional cardiovascular complaints Respiratory: Respiratory: Reports no additional respiratory complaints Gastrointestinal: Gastrointestinal: Denies abdominal pain, Denies nausea and Denies vomiting Genitourinary: Genitourinary: Denies hematuria Exam Resp: Effort & Inspection: normal respiratory effort Cardio: Rate: regular rate GI: GI Palp: Yes Soft to palpation and No Tenderness to palpation present (GI) : General: Yes no CVA tenderness Urinary Catheter: Urinary Catheter: patent and draining, urine clear and urine dark Extrem: General: no edema Objective Data Vital Signs Vital Signs: Vital Signs - 24 hr 07/01/20 14:39 07/01/20 17:51 07/01/20 20:49 Temperature 96.4 F L 96.9 F L Pulse Rate 60 66 Respiratory Rate 14 14 Blood Pressure 86/42 L 109/56 L 105/57 L Pulse Oximetry 98 98 07/01/20 21:15 07/01/20 21:18 07/02/20 08:00 Temperature Pulse Rate 68 Respiratory Rate Blood Pressure Pulse Oximetry 98 98 07/02/20 10:34 Temperature Pulse Rate 66 Respiratory Rate Blood Pressure Pulse Oximetry Intake/Output Intake/Output: Intake & Output 06/29/20 06/30/20 07/01/20 07/02/20 23:59 23:59 23:59 23:59 Intake Total 50 1280 1320 600 Output Total 2550 81877 1750 Balance 50 -9658 -8680 -1150 Meds/Results Medications: Active Medications Generic Name Dose Route Start Last Admin Trade Name Freq PRN Reason Stop Dose Admin Amitriptyline HCl 25 mg 06/29/20 22:00 07/01/20 21:18 Amitriptyline Hcl 25 Mg Tablet PO 25 mg HS MADIE Administration Atorvastatin Calcium 10 mg 06/30/20 09:00 07/02/20 10:31 Atorvastatin 10 Mg Tablet PO 10 mg DAILY MADIE Administration Brimonidine Tartrate 1 drop 06/29/20 22:00 07/02/20 05:31 Brimonidine Tartrate 0.1% 5 Ml Ophth Drops EACH EYE 1 drop Q8HR MADIE Administration Buspirone HCl 10 mg 06/29/20 22:00 07/02/20 10:31 Buspirone Hcl 10 Mg Tablet PO 10 mg TID MADIE Administration Cyclosporine 1 drop 06/29/20 22:00 07/02/20 10:31 Cyclosporine 0.4 Ml Ophth Solution EACH EYE 1 drop Q12HR MADIE Administration Docusate Sodium 100 mg 06/29/20 21:49 Docusate Sodium 100 Mg Capsule PO DAILY PRN Constipation Furosemide 40 mg 06/30/20 09:00 07/02/20 10:31 Furosemide 40 Mg Tablet PO 40 mg BID MADIE Administration Ceftriaxone Sodium/Dextrose 1 gm in 50 mls @ 100 mls/hr 06/30/20 09:00 07/02/20 10:37 Rocephin 1 Gm/D5w 50 Ml IVPB 100 mls/hr Q24H MADIE Administration Isosorbide Mononitrate 60 mg 06/30/20 09:00 07/02/20 10:32 Isosorbide Mononitrate 60 Mg Tab.Er.24h PO 60 mg DAILY MADIE Administration Latanoprost 1 drop 06/29/20 22:05 07/01/20 21:20 Latanoprost 0.005% Op Soln 2.5 Ml Btl EACH EYE 1 drop HS MADIE Administration Loratadine 10 mg 06/30/20 09:00 07/02/20 10:32 Loratadine 10 Mg Tablet PO 10 mg QAM MADIE Administration Magnesium Oxide 400 mg 06/30/20 09:00 07/02/20 10:32 Magnesium Oxide 400 Mg Tablet PO 400 mg DAILY MADIE Administration Metronidazole 500 mg 06/30/20 12:00 07/02/20 05:31 Metronidazole 250 Mg Tablet PO 500 mg Q6HR MADIE Administration Non-Formulary Medication 27 - 300 tablet 06/30/20 09:00 Iron-Vitamin B Complex With C PO 07/30/20 09:01 DAILY [facility] Potassium Chloride 20 meq 06/30/20 08:00 07/02/20 10:30
--- NOTE | 2020-07-02 13:31 | PM.DS ---
DS: Admitting Diagnosis Admitting Diagnosis Admitting Diagnosis: Hematuria DS: Discharge Diagnosis Discharge Diagnosis (1) Hematuria: Qualifiers: Hematuria type: gross Qualified Code(s): R31.0 - Gross hematuria Code(s): R31.9 - Hematuria, unspecified Status: Acute Assessment and Plan: Date of Admission 06/29/20 Date of Discharge/DOS 07/02/20 Mr. Stevens is a very pleasant 85yo M with history of CKD, hypertension, atrial fibrillation, ischemic cardiomyopathy with chronic respiratory failure on 2L/min home oxygen who presented to the ED for evaluation of hematuria. He was evaluated by Dr Davidson, urology, and underwent cystoscopy with clot evacuation 06/30/20 which he tolerated well. No papillary masses or lesions were identified. Following the procedure he remained on continuous bladder irrigation through 07/01 evening and urine cleared. Urine culture was negative. Main complaint is weakness and he worked with PT/OT; felt to be a good candidate to continue therapy at home. Home health was arranged. He was noted to have some mild dysphagia and imaging showed possible developing pneumonia; he was started on IV antibiotics with flagyl and rocephin and is discharged on oral augmentin for coverage. It was recommended he trial mildly thickened liquids and he can continue with speech therapy at discharge as well. [place] catheter removed 07/02 and he voided without difficulty. He was feeling improved and was hemodynamically stable for discharge on 07/02/20 with instructions to follow up with urology and PCP. See below about follow up imaging for renal lesion and lung nodules. Patient underwent cystoscopy with clot evacuation 06/30/[address] Davidson. (2) Chronic kidney disease: Qualifiers: Chronic kidney disease stage: stage 3 (moderate) Chronic kidney disease stage 3 subtype: stage 3b (GFR 30-44) Qualified Code(s): N18.32 - Chronic kidney disease, stage 3b Code(s): N18.9 - Chronic kidney disease, unspecified Status: Chronic Assessment and Plan: Cr 1.6 on arrival and 1.2 at discharge near his baseline. (3) Hyperglycemia: Code(s): R73.9 - Hyperglycemia, unspecified Status: Acute Assessment and Plan: Noted on routine labs -A1c within normal limits 5.3% (4) Abnormal finding on imaging: Code(s): R93.89 - Abnormal findings on diagnostic imaging of other specified body structures Status: Acute Assessment and Plan: -There is a 1.3 cm lesion of the upper pole of the right kidney that favors splenule. Low risk for neoplasm but it is in the differential. Consider MRI outpatient if desired -there is also a 5 mm and 7 mm nodule at the lingula and we recommend a CT in 6 months -follow-up with PCP (5) Hypertension: Qualifiers: Hypertension type: essential hypertension Qualified Code(s): I10 - Essential (primary) hypertension Code(s): I10 - Essential (primary) hypertension Status: Chronic Assessment and Plan: Stable maintained on home Lasix, Imdur, Entresto, and sotalol (6) Atrial fibrillation: Qualifiers: Atrial fibrillation type: unspecified Qualified Code(s): I48.91 - Unspecified atrial fibrillation Code(s): I48.91 - Unspecified atrial fibrillation Status: Chronic Assessment and Plan: Rate controlled on home sotalol. (7) Ischemic cardiomyopathy: Code(s): I25.5 - Ischemic cardiomyopathy Status: Chronic Assessment and Plan: Chronic -appears euvolemic -continue Lasix, Imdur, and Entresto -patient is on 2 L of oxygen chronically for this
[2020-07-02 14:57] VITALS: BP 100/48; PULSE 61; RESP 16; TEMP 36.3; O2SAT 96
== END 2020-07-02 17:15 | disposition home health service (06) | DRG 669 ==
LOC: ANHED 13:34 → ANH3MED 17:11
PROVIDERS: Physician Assistant; Urology; Admitting Provider Family Medicine; Emergency Provider Emergency Medicine; PCP Internal Medicine; Visit Provider Physician Assistant
PROC: 0TCB8ZZ Extirpation of Matter from Bladder, Via Natural or Artificial Opening Endoscopic (ICD-10-PCS; CPT 52001; principal; 2020-06-30 07:30)
DX: R31.0 Gross hematuria (principal); J96.11 Chronic respiratory failure with hypoxia; E87.1 Hypo-osmolality and hyponatremia; Z99.81 Dependence on supplemental oxygen; N39.0 Urinary tract infection, site not specified; R13.10 Dysphagia, unspecified; I12.9 Hypertensive chronic kidney disease with stage 1 through stage 4 chronic kidney disease, or unspecified chronic kidney disease; N18.32 Chronic kidney disease, stage 3b; I48.91 Unspecified atrial fibrillation; I25.5 Ischemic cardiomyopathy; R93.89 Abnormal findings on diagnostic imaging of other specified body structures; R73.9 Hyperglycemia, unspecified; E87.6 Hypokalemia; E87.8 Other disorders of electrolyte and fluid balance, not elsewhere classified; I25.10 Atherosclerotic heart disease of native coronary artery without angina pectoris; E78.5 Hyperlipidemia, unspecified; H40.9 Unspecified glaucoma; Z79.899 Other long term (current) drug therapy; Z87.891 Personal history of nicotine dependence; Z95.1 Presence of aortocoronary bypass graft; Z95.810 Presence of automatic (implantable) cardiac defibrillator
CPT/HCPCS: 36415; 74176; 80048; 80053; 81001; 83036; 83735; 85014; 85018; 85025; 85027; 85055; 87086; 92526; 92611; 96365; 99285; A9270; G0378; J0696; J2704; J7120